=== PATIENT | female | born 1960 | race Caucasian/White ===

== ENCOUNTER → 2020-05-24 | Outpatient (CLI) | payer MEDICARE, SELFPAY | END | disposition home or self-care (01) | LOC: MTDU 10:33 | PROVIDERS: PCP Internal Medicine; Referring Provider Internal Medicine; Visit Provider Internal Medicine | DX: Z20.828 Contact with and (suspected) exposure to other viral communicable diseases (principal); J02.9 Acute pharyngitis, unspecified; R09.89 Other specified symptoms and signs involving the circulatory and respiratory systems; R06.7 Sneezing | CPT/HCPCS: 87635; 87804; C9803; U0003 ==

== ENCOUNTER 2020-06-21 23:59 | Observation (INO) | payer MEDICARE, SELFPAY ==
[2020-06-22] VITALS (15 sets, daily range): BP systolic 86–124; BP diastolic 50–77; PULSE 69–88; RESP 14–18; TEMP 36.4–37.1; O2SAT 94–100; BMI 30.9; BMI 31.1; BMI 31.2
--- NOTE | 2020-06-22 00:04 | EKG12_ITS ---
Test Reason : CP Blood Pressure : / mmHG Vent. Rate : 085 BPM Atrial Rate : 085 BPM P-R Int : 140 ms QRS Dur : 074 ms QT Int : 376 ms P-R-T Axes : 067 037 062 degrees QTc Int : 447 ms Normal sinus rhythm Low voltage QRS Borderline ECG Confirmed by PADILLA ZEPEDA, HAWA ([id number]), school photograph editor PENNY GRANT ([id number]) on 06/26/2020 9:03:48 AM Referred By: Confirmed By:HAWA CAUSEY MD
--- NOTE | 2020-06-22 00:04 | RAD_ITS ---
HISTORY: Pt with CP over the past 5 days that became severe when lying down tonight EXAM: XR Chest 1 View: COMPARISON: None FINDINGS: # of images incl. paperwork: 1 Lungs are clear. Heart is not enlarged. No acute osseous pathology perceived. Pulmonary vascularity is distinct. No effusions. RAD/Chest 1 View (Portable) IMPRESSION: Normal. at 0044 Reported and signed by: Wei Neumann MD Electronically Signed: Wei Neumann MD at 0:43 EST Tel , Service support ,
[2020-06-22] MEDS: Aspirin 81 MG TAB.CHEW 324 MG PO (00:15)
[2020-06-22] MEDS: Nitroglycerin SL (ED/IMG/CATH) 0.4 MG TABLET SUBLINGUAL (00:17)
--- NOTE | 2020-06-22 00:21 | ED.VISSUMM ---
- ER Visit Summary Date of Service: 06/22/20 Chief Complaint: Chest pain History of Present Illness: The patient is a 60 F presenting with chest pain. Patient states this started intermittently 5 days ago and worsened this evening. She has midsternal chest pain that radiates to her left arm. She has associated shortness of breath and diaphoresis. She was tested for Covid 2 weeks ago and was negative. She states her primary care physician ordered a stress test that was canceled for unknown reason. She is supposed to have this rescheduled. She is a previous smoker. Denies fever, cough. Denies other complaints. Physical Examination: Vitals are stable. Patient is afebrile. Alert no acute distress. HEENT exam is unremarkable. Neck is supple. Lungs are clear and equal bilaterally. Heart is regular rate and rhythm. Abdomen is soft nontender nondistended. Extremities are unremarkable. Skin is warm and dry. No focal neurologic deficit. Remainder of exam is unremarkable. Emergency Department Course and Treatment: Patient was given aspirin, nitro on arrival. EKG is sinus rhythm rate of 85 with no acute ischemic changes. CBC, chemistry unremarkable. Troponin is negative. Patient's blood pressure decreased after nitro. She was given IV fluids with improvement of her blood pressure. She is given morphine with improvement of her pain. Chest x-ray shows no acute process. Discussed with the hospitalist for observation. Disposition: Observation Impression: Chest pain This note was generated with Rising dictation software. It may contain incorrect words, spelling, and punctuation that were not noted in review of the chart prior to signing ED Disposition - Plan for ED Patient: Referrals: Fernanda Fulton MD [Primary Care Provider] -
[2020-06-22] MEDS: 0.9% Normal Saline 1,000 ML 999 ML IV (00:22)
[2020-06-22 00:28] LABS: Absolute Lymphocyte Count 2.42 X10^3/uL (0.83-4.51); Absolute Neutrophil Count 4.7 X10^3/uL (2.0-7.7); Basophil# 0.05 X10^3/uL; Basophil% 0.6 % (0-1); Eosinophil# 0.19 X10^3/uL; Eosinophils% 2.3 % (0-5); Hematocrit 38.1 % (37-47); Hemoglobin 12.9 g/dL (12.0-15.0); Lymphocyte # 2.42 X10^3/ul (4.0); Lymphocyte % 29.1 % (19-41); Mean Corp Hgb Conc 33.9 g/dL (32-36); Mean Corpuscular Hgb 31.4 pg (27.0-32.0); Mean Corpuscular Volume 92.7 fL (81-99); Mean Platelet Vol. 9.4 fl (6.2-12.0); Monocyte# 0.89 X10^3/uL; Monocyte% 10.7 % (0-10); NRBC Flagged by Analyzer 0 % (0-5); Neutrophil # 4.74 X10^3/uL (2.7-7.7); Neutrophil % 56.9 % (47-70); Platelet Count 315 K/mm3 (150-450); RBC Distribution Width CV 12.5 % (11.6-14.6); RBC Distribution Width SD 42.7 fl (35.1-43.9); Red Blood Count 4.11 M/mm3 (4.2-5.4); White Blood Count 8.3 K/mm3 (4.4-11.0)
[2020-06-22 00:50] LABS: Anion Gap 7 (5-15); BUN 14 mg/dL (7-18); Calcium,Total 9.4 mg/dL (8.5-10.1); Chloride 108 mmol/L (98-107); Creatinine, Serum 0.94 mg/dL (0.55-1.02); EST Glomerular Filtration Rate 65 mL/min (>60); Est Glom Filt Rate - Afr Amer 78 mL/min (>60); Estimated Creatinine Clearance 47.43 ml/min; Glucose 97 mg/dL (74-106); Potassium 3.5 mmol/L (3.5-5.1); Sodium Level 142 mmol/L (136-145)
[2020-06-22] MEDS: Ondansetron 4 MG/2 ML Vial IV ×2 (01:32→10:56)
[2020-06-22] MEDS: Morphine 4 MG/ML Syringe IV (01:32)
--- NOTE | 2020-06-22 02:40 | PCM.HP.STD ---
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 She describes her chest pain as a pressure. Her chest pain radiates to her left arm. Her chest pain has woken her up in the middle of the night. Her chest pain improves with standing and worsens with lying down. She report that her PCP scheduled an echocardiogram. Reportedly echocardiogram was abnormal so a stress test was ordered. Patient is yet to do the stress test. She reports that she has a scheduled appointment with cardiology in July 2020 as that was the first available appointment. Associated with her her symptom is light headedness; diaphoresis, shortness of breath and a feeling of swollen knees. Further she reports seeing floaters. At the emergency department she was given nitroglycerin and her blood pressure dropped. She then received IV fluids. After her blood pressure improved she was given morphine sulfate. Past Medical History Medical History: Medical History (Last Updated 06/22/20 @ 06:[address] Kole Marshall MD) Irritable bowel syndrome K58.9 Allergies Iodinated Contrast Media [DYEE] Allergy (Verified 06/22/20 00:04) Anaphylaxis amoxicillin Adverse Reaction (Verified 06/22/20 00:04) Rash Home Medications: Ambulatory Orders Medication Instructions Recorded Amitriptyline HCl [Elavil] 25 mg PO QHS 06/22/20 Pantoprazole Sodium [Protonix] 40 mg PO DAILY 06/22/20 Surgical History: appendectomy, cholecystectomy, hysterectomy - Endometriosis, - - Salivary tumor x2 with reconstruction of right jaw. Arm surgery for graft. Lysis of adhesion. Smoking Status: Never smoker - *Family History Maternal History Items: Cancer - Ovarian Paternal History Items: Cancer - His father from gastric cancer Review of Systems Constitutional: Denies: Chills, Fever, Weight Change HEENT: Denies: Head Aches, Sinus Congestion, Sinus Drainage Cardiovascular: Reports: Chest Pain, Palpitations Respiratory: Reports: Shortness of Breath. Denies: Cough, Shortness of breath at rest, Sputum production Gastrointestinal: Denies: Abdominal Pain, Nausea, Vomiting Genitourinary: Denies: Dysuria Musculoskeletal: Denies: Joint Pain, Joint Tenderness Skin: Denies: Rash, Wounds Neurological: Denies: Numbness, Tingling, Focal weakness Psychiatric: Denies: Anxiety, Depression, Homicidal Ideations, Suicidal Ideations Hematologic/ Lymphatic: Denies: Easy Bruising, Easy Bleeding VTE Information - Inpt Only VTE Present on Admission: No VTE Mechan Device Prophylaxis: SCD's VTE Pharm Prophylaxis ordered?: No Patient Problems: Active and Suspected Problems (Last Updated 06/22/20 @ 06:[address] Kole Marshall MD) Chest pain (Acute) - Physical Exam Vitals/I&O's: Vital Signs Temp Pulse Resp BP Pulse Ox 98.0 F 81 16 124/77 H 100 06/22/20 00:00 06/22/20 02:00 06/22/20 02:00 06/22/20 02:00 06/22/20 02:00 Oxygen Delivery Method Room Air Weight: 74.1 kg Body Mass Index (BMI) 30.9 Intake and Output for Last 24 Hours 06/20/20 06/21/20 06/22/20 23:59 23:59 23:59 Intake Total 1000 / 1000 Balance 1000 / 1000 General: Alert, Oriented x3, Cooperative HEENT: Atraumatic, PERRLA, EOMI, Normocephalic Neck: Supple, No JVD, Negative Carotid Bruits Lungs: Clear to auscultation, Normal air movement Cardiovascular: Regular rate, No murmurs Abdomen: Bowel Sounds Present, Soft, Non Tender Extremities: No edema, Capillary Refill Less than 3 Seconds Skin: No rashes, No breakdown Musculoskeletal: No Tenderness to Palpation of Joints or Extremities Neurological: Cranial nerves II-XII grossly intact Psych/Mental Status: Normal Affect, Appropriate Microbiology Past 72 Hours 06/22/20 01:30 Mucosa - Nose SARS-CoV-2 Antigen (Rapid) - Final Laboratory Results 06/22/20 00:15: WBC 8.3, RBC 4.11 L, Hgb 12.9, Hct 38.1, MCV 92.7, MCH 31.4, MCHC 33.9, RDW Std Deviation 42.7, RDW Coeff of Ezio 12.5, Plt Count 315, MPV 9.4, Immature Gran % (Auto) 0.400, Neut % (Auto) 56.9, Lymph % (Auto) 29.1, [place] % (Auto) 10.7 H, Eos % (Auto) 2.3, Baso % (Auto) 0.6, Absolute Neuts (auto) 4.7, Absolute Lymphs (auto) 2.42, Nucleated RBC % 0 06/22/20 00:15: Sodium 142, Potassium 3.5, Chloride 108 H, Carbon Dioxide 27.0, Anion Gap 7, BUN 14, Creatinine 0.94, Estim Creat Clear Calc 47.43, Est GFR (MDRD) Af Amer 78, Est GFR (MDRD) Non-Af 65, BUN/Creatinine Ratio 15.0, Glucose 97, Calcium 9.4, Troponin I < 0.015 Current Medications Nitroglycerin (Nitroglycerin Sl (Ed/Img/Cath) 0.4 Mg Tablet) 0.4 mg SUBLINGUAL Q5M PRN PRN Reason: Chest pain Last Admin: 06/22/20 00:17 Dose: 0.4 mg Documented by: Assessment/Plan All Active Problems (Last Updated 06/22/20 @ 06:[address] Kole Marshall MD) Chest pain (Acute) Chest pain Place on a monitored bed at PCU Actual CXR image was independently visualized. No acute cardiopulmonary process was noted. Actual EKG tracing was independently visualized. EKG tracing showed low voltages without any ST or T wave abnormalities. Aspirin 324 mg at emergency department. ASA 81 mg p.o. daily ordered Following hypotension at the emergency department with nitroglycerin will avoid nitroglycerin at this time. Morphine as needed for pain ordered We will check lipid panel. Initial Troponin was negative Serial cardiac enzymes ordered Stat EKG as needed for chest pain Chemical stress test in the AM if the cardiac enzymes are negative Obtain echocardiogram records from PCP. Vision Floaters Consider ophthalmology referral upon discharge. Depression/anxiety Elavil continued GERD Protonix continued DVT prophylaxis SCD while planning for cardiac work up for chest pain OBSV E&M: [id number] Initial observation care L2
--- NOTE | 2020-06-22 02:49 | EKG12_ITS ---
Test Reason : CP ADMIT Blood Pressure : / mmHG Vent. Rate : 064 BPM Atrial Rate : 064 BPM P-R Int : 156 ms QRS Dur : 078 ms QT Int : 428 ms P-R-T Axes : 069 022 049 degrees QTc Int : 441 ms Normal sinus rhythm Low voltage QRS Borderline ECG When compared with ECG of 30-MAR-2000 07:52, No significant change was found Confirmed by PADILLA ZEPEDA, HAWA ([id number]), news copy editor PENNY GRANT ([id number]) on 06/26/2020 9:34:56 AM Referred By: DR ELISE Confirmed By:HAWA CAUSEY MD
[2020-06-22] MEDS: 0.9% Saline Lock 10 ML Syringe IV (05:22)
[2020-06-22] MEDS: Morphine 2 MG/ML Syringe IV (05:22)
[2020-06-22] MEDS: Aspirin E.C. 81 MG Tablet PO (05:30)
--- NOTE | 2020-06-22 07:47 | CCHN_ITS ---
Hospitalist Note Late to see the patient as she is complaining of 10 out of 10 abdominal pain that was refractory to the morphine. Went to see the patient and patient is on her right side and this. Be slightly groggy. Patient stated that she is just having this chest and epigastric abdominal pain that radiates to her left side and feels that her ribs are swollen. Upon further inquiry, patient states that her abdomen is also swollen as well. Physical exam, patient appears slightly groggy, afebrile. Abdomen is soft patient does wince slightly with abdominal exam in the epigastrium patient does have some reproducible left lateral and posterior rib pain. The abdomen is soft and nondistended. Skin exam does not reveal any evidence of any kind of zoster outbreak. Assessment and plan: Abdominal pain: Pain is 4 out of proportion to exam release which she is reporting. Will perform and abdominal x-ray to see if she does have a small bowel obstruction patient does note that she has had multiple surgeries and states that only her stomach is left. I asked her if she had her colon resected which she said she did not her gallbladder and appendix have been removed. Will check a lipase. Patient states that she drinks alcohol rarely and her last drink of alcohol was about 2 months ago. If the abdominal work-up is unremarkable then plan is for the patient to continue with the stress test. At this point time it has not been canceled. Procedures: Other Procedure - See Report - non billable rounding as patient ad mitted after midnight.
[2020-06-22 07:48] LABS: Anion Gap 4 (5-15); BUN 13 mg/dL (7-18); BUN/Creat Ratio 14.7 RATIO (10-20); Calcium,Total 8.8 mg/dL (8.5-10.1); Chloride 112 mmol/L (98-107); Cholesterol 170 mg/dL (200); Creatinine, Serum 0.88 mg/dL (0.55-1.02); EST Glomerular Filtration Rate 69 mL/min (>60); Est Glom Filt Rate - Afr Amer 84 mL/min (>60); Estimated Creatinine Clearance 50.66 ml/min; Glucose 88 mg/dL (74-106); High Density Lipoprotein 43 mg/dL; Potassium 3.5 mmol/L (3.5-5.1); Sodium Level 144 mmol/L (136-145); Triglycerides 99 mg/dL; Very Low Density Lipoprotein 20 mg/dL (5-40)
--- NOTE | 2020-06-22 10:00 | RAD_ITS ---
STUDY: X-RAY - ABDOMEN/PELVIS REASON FOR EXAM: Female, 60 years old. abdominal pain, chest pain, bloating, Hx irritable bowel TECHNIQUE: 3 AP views COMPARISON: None. FINDINGS: Normal visualized lung bases. There is a moderate amount of colonic fecal material. There is no demonstrated free abdominal air. The visualized liver, spleen and kidneys are grossly normal in size and morphology. Normal soft tissue structures. There are diffuse degenerative changes of the visualized lumbar spine. RAD/Abd Decub and/or Erect(Portabl IMPRESSION: No acute findings, retained stool Electronically Signed: Quintin Chua MD at 11:18 EST , Service support ,
[2020-06-22] MEDS: Pantoprazole Sodium 40 MG Tablet PO (10:50)
[2020-06-22] MEDS: Mag Hydrox/Al Hydrox/Simeth 30 ML UDC PO (10:50)
[2020-06-22] MEDS: Acetaminophen 325 MG Tablet 650 MG PO (10:51)
--- NOTE | 2020-06-22 10:55 | STRESSREP ---
Stress Test Report Pharmacologic myocardial perfusion stress test. 60-year-old lady with a history of chest pain. Stress protocol: Resting EKG demonstrates normal sinus rhythm with a rate of 64 bpm normal intervals are noted resting blood pressure is 118/70 mmHg. 0.4 mg of regadenoson was infused per usual protocol followed by rapid intravenous saline flush injection continuous EKG monitoring was performed. At rest there were no ST or T wave changes noted to suggest abnormal flow reserve at peak infusion nonspecific ST-T wave changes were noted. No clinical angina was noted. The resting blood pressure was 118/70 with a final blood pressure of the same. Myocardial perfusion protocol. 14.1 mCi of technetium 99m sestamibi was injected at rest, 0.4 of regadenoson was infused per usual protocol. At peak infusion 44.4 mCi of technetium 99m sestamibi was injected stress images were obtained stress and rest images were reconstructed and compared in the short axis vertical long horizontal long axis. Gated images were also obtained per Perfusion SPECT analysis: Review of the stress images demonstrate normal uptake of tracer noted in all areas of the myocardium the resting images similarly demonstrate normal uptake of tracer noted in all areas of the myocardium. No areas of reversibility are noted to suggest ischemia no previous infarct is noted. Gated SPECT analysis: The gated ejection fraction is 76%. Conclusion: Normal pharmacologic myocardial perfusion stress test. Preserved ejection fraction.
[2020-06-22 12:35] LABS: AST(SGOT) 18 U/L (15-37); Alanine Aminotransfer ALT/SGPT 25 U/L (13-56); Albumin, Serum 3.4 g/dL (3.2-5.0); Alkaline Phosphatase 71 U/L (45-117); Bilirubin, Direct 0.18 mg/dL (0.00-0.30); Lipase 53 U/L (73-393); Protein, Total 6.4 g/dL (6.4-8.2)
--- NOTE | 2020-06-22 13:31 | DCINST_ITS ---
- Discharge Diagnoses Current Active Problems: Current Active and Chronic Problems (Last Updated 06/22/20 @ 06:[address] Kole Marshall MD) Chest pain (Acute) You will use the following diet at home:: No restrictions Your food should be the consistency of: Regular Discharge Activity: Return to Normal Activity Call your doctor if you observe: Fever of 101 or Higher, Shortness of breath, - - worsening abdominal pain Allergies/Adverse Reactions: Allergies Iodinated Contrast Media [DYEE] Allergy (Verified 06/22/20 03:26) Anaphylaxis amoxicillin Adverse Reaction (Verified 06/22/20 03:26) Rash Medications to take at Discharge Amitriptyline HCl [Elavil] 25 mg PO QHS 06/22/20 Bisacodyl [Dulcolax] 5 mg PO DAILY PRN PRN #1 tablet. 06/22/20 Pantoprazole Sodium [Protonix] 40 mg PO DAILY 06/22/20 Polyethylene Glycol 3350 [Miralax] 17 gm PO DAILY #1 packet 06/22/20 The following prescriptions were given: Bisacodyl [Dulcolax] 5 mg PO DAILY PRN PRN #1 tablet.dr SAWYER Reason: Constipation Polyethylene Glycol 3350 [Miralax] 17 gm PO DAILY #1 packet Primary Care Physician: Fernanda Fulton MD [Primary Care Provider] - Within 2 Weeks Test Results: Test results from this visit will be discussed in further detail at your follow- up appointment, if applicable. Please Follow Up With: gastroenterology When: 2-3 monts Proposed Discharge Date: 06/22/20
--- NOTE | 2020-06-22 13:32 | DS.PCM_ITS ---
Discharge Date and Diagnosis - Problem List Patient Problems: Active and Suspected Problems (Last Updated 06/22/20 @ 06:[address] Kole Marshall MD) Chest pain (Acute) Date of Admission: 06/22/20 Date of Discharge: 06/22/20 - Primary Discharge Diagnosis Acute Problems: Active Problems (Last Updated 06/22/20 @ 06:[address] Kole Marshall MD) Chest pain (Acute) Hospital Course and Treatment Imaging Results: 06/22/20 05:55 Nuclear Stress Test - Chemical [NM] AM (NON MEDS) 06/22/20 10:00 Abd Decub and/or Erect(Portabl [RAD] Urgent Clinical Impression(s) from Imaging Studies Chest X-Ray 06/22/20 00:04 IMPRESSION: Normal. at 0044 Reported and signed by: Wei Neumann MD Electronically Signed: Wei Neumann MD at 0:43 EST Tel , Service support , Abdomen X-Ray 06/22/20 10:00 IMPRESSION: No acute findings, retained stool Electronically Signed: Quintin Chua MD at 11:18 EST , Service support , Operations: None Procedures: Stress test Summary of Care Provided: The patient is a 60 year old F presents with chest pain and abdominal pain. Patient's cardiac work-up was unremarkable which included a stress test. Stress test was negative. Patient was complaining of abdominal pain and she did have an abdominal x-ray that was negative for any acute intra-abdominal pathology however did show copious amounts of stool. Discussed with the patient further about this and patient does have irritable bowel syndrome and has intermittent constipation and diarrhea. Patient states she takes laxatives every other day. Told patient that she will need to be on a stool softener which she is not so told the patient that she should take MiraLAX daily and then laxatives sparingly as needed. Patient does have a direct support staff that she follows up with and they are looking and medication for her bowels which she was not sure of but was very expensive. Patient is otherwise feeling well and can be discharged home in stable condition. [] Patient Problems: Active and Suspected Problems (Last Updated 06/22/20 @ 06:[address] Kole Marshall MD) Chest pain (Acute) - Physical Exam Vitals/I&O's: Vital Signs Temp Pulse Resp BP Pulse Ox 36.6 C 76 18 101/50 L 95 06/22/20 07:04 06/22/20 08:36 06/22/20 07:04 06/22/20 07:04 06/22/20 07:15 Oxygen Delivery Method Room Air Weight: 74.9 kg Body Mass Index (BMI) 31.1 Intake and Output for Last 24 Hours 06/20/20 06/21/20 06/22/20 23:59 23:59 23:59 Intake Total 1000 / 1000 Balance 1000 / 1000 Microbiology Past 72 Hours 06/22/20 01:30 Mucosa - Nose SARS-CoV-2 Antigen (Rapid) - Final Laboratory Results 06/22/20 00:15: WBC 8.3, RBC 4.11 L, Hgb 12.9, Hct 38.1, MCV 92.7, MCH 31.4, MCHC 33.9, RDW Std Deviation 42.7, RDW Coeff of Ezio 12.5, Plt Count 315, MPV 9.4, Immature Gran % (Auto) 0.400, Neut % (Auto) 56.9, Lymph % (Auto) 29.1, [place] % (Auto) 10.7 H, Eos % (Auto) 2.3, Baso % (Auto) 0.6, Absolute Neuts (auto) 4.7, Absolute Lymphs (auto) 2.42, Nucleated RBC % 0 06/22/20 00:15: Sodium 142, Potassium 3.5, Chloride 108 H, Carbon Dioxide 27.0, Anion Gap 7, BUN 14, Creatinine 0.94, Estim Creat Clear Calc 47.43, Est GFR (MDRD) Af Amer 78, Est GFR (MDRD) Non-Af 65, BUN/Creatinine Ratio 15.0, Glucose 97, Calcium 9.4, Troponin I < 0.015 06/22/20 04:10: Troponin I < 0.015 06/22/20 06:05: Sodium 144, Potassium 3.5, Chloride 112 H, Carbon Dioxide 28.0, Anion Gap 4 L, BUN 13, Creatinine 0.88, Estim Creat Clear Calc 50.66, Est GFR (MDRD) Af Amer 84, Est GFR (MDRD) Non-Af 69, BUN/Creatinine Ratio 14.7, Glucose 88, Calcium 8.8, Triglycerides 99, Cholesterol 170, LDL Cholesterol 107, VLDL Cholesterol 20, HDL Cholesterol 43 06/22/20 06:05: Troponin I < 0.015 06/22/20 06:05: Total Bilirubin 0.50, Direct Bilirubin 0.18, AST 18, ALT 25, Alkaline Phosphatase 71, Total Protein 6.4, Albumin 3.4, Globulin 3.0, Lipase 53 L Current Medications Acetaminophen (Acetaminophen 325 Mg Tablet) 650 mg PO Q6H PRN PRN PRN Reason: Pain Score 1-10/Temp > 100.7 F Last Admin: 06/22/20 10:51 Dose: 650 mg Documented by: Amitriptyline HCl (Amitriptyline 25 Mg Tablet) 25 mg PO QHS [facility] Aspirin (Aspirin E.C. 81 Mg Tablet) 81 mg PO DAILY@0800 [facility] Last Admin: 06/22/20 05:30 Dose: 81 mg Documented by: Sodium Chloride () 250 mls @ 15 mls/hr IV .[id number] PRN PRN Reason: Saline Flush Sodium Chloride () 250 mls @ 15 mls/hr IV .[id number] PRN PRN Reason: Additional IVPB Infusion Morphine Sulfate (Morphine 2 Mg/Ml Syringe) 2 mg IV Q3H PRN PRN PRN Reason: Pain Score 6-10 Last Admin: 06/22/20 05:22 Dose: 2 mg Documented by: Nitroglycerin (Nitroglycerin Sl (Ed/Img/Cath) 0.4 Mg Tablet) 0.4 mg SUBLINGUAL Q5M PRN PRN Reason: Chest pain Last Admin: 06/22/20 00:17 Dose: 0.4 mg Documented by: Ondansetron HCl (Ondansetron 4 Mg/2 Ml Vial) 4 mg IV Q8H PRN PRN PRN Reason: NAUSEA/VOMITING Last Admin: 06/22/20 10:56 Dose: 4 mg Documented by: Ondansetron HCl (Ondansetron 4 Mg/2 Ml Vial) 4 mg IV Q6H PRN PRN PRN Reason: NAUSEA Pantoprazole Sodium (Pantoprazole Sodium 40 Mg Tablet) 40 mg PO DAILY SONIDO Last Admin: 06/22/20 10:50 Dose: 40 mg Documented by: Sodium Chloride (0.9% Saline Lock 10 Ml Syringe) 10 - 40 ml IV UD PRN PRN Reason: SALINE FLUSH Last Admin: 06/22/20 05:22 Dose: 20 ml Documented by: Discharge Diet: No Restrictions Discharge Activity: Return to Normal Activity Call your doctor if you observe: Fever of 101 or Higher, Shortness of breath, - - worsening abdominal pain Home Medications: Medications to take at Discharge Amitriptyline HCl [Elavil] 25 mg PO QHS 06/22/20 Bisacodyl [Dulcolax] 5 mg PO DAILY PRN PRN #1 tablet. 06/22/20 Pantoprazole Sodium [Protonix] 40 mg PO DAILY 06/22/20 Polyethylene Glycol 3350 [Miralax] 17 gm PO DAILY #1 packet 06/22/20 Following Prescriptions Were Given to Patient: Bisacodyl [Dulcolax] 5 mg PO DAILY PRN PRN #1 tablet. PRClara Reason: Constipation Polyethylene Glycol 3350 [Miralax] 17 gm PO DAILY #1 packet Primary Care Physician: Fernanda Fulton MD [Primary Care Provider] - Within 2 Weeks Please Follow Up With: gastroenterology When: 2-3 monts Disposition: Home Minutes spent on discharge:: 28 Patient Condition:: Good Medical Necessity - Tobacco Use Smoking Status: Former smoker Meaningful Use Info Meaningful Use Diagnoses (Choose all that apply): None applicable OBSV E&M: 74957 Observation care discharge
[2020-06-22] MEDS: Fleet Enema 1 ML RECTAL (15:33)
== END 2020-06-22 16:25 | disposition home or self-care (01) ==
LOC: ED 06-22 00:33 → PCU 06-22 02:58
PROVIDERS: Admitting Provider Hospitalist; Emergency Provider Emergency Medicine; PCP Internal Medicine
DX: R07.89 Other chest pain (principal); K58.1 Irritable bowel syndrome with constipation; R06.02 Shortness of breath; F41.9 Anxiety disorder, unspecified; F32.9 Major depressive disorder, single episode, unspecified; H43.399 Other vitreous opacities, unspecified eye; K21.9 Gastro-esophageal reflux disease without esophagitis; Z87.891 Personal history of nicotine dependence; Z79.899 Other long term (current) drug therapy
CPT/HCPCS: 36415; 71045; 74019; 78452; 80048; 80061; 80076; 83690; 84484; 85025; 87426; 93005; 93017; 96361; 96374; 96375; 96376; 99218; 99285; A9500; A4216; G0378; J2405; J2785